=== PATIENT | male | born 1990 | race Hispanic/Latino ===

== ENCOUNTER 2018-05-17 22:34 | Emergency (ER) | payer SELFPAY ==
[2018-05-17] MEDS ORDERED: TETANUS & DIPHTHERIA TOX,ADULT 0.5 ML VIAL ONE (23:07)
[2018-05-17] MEDS ORDERED: LIDOCAINE 1% MPF 5 ML VIAL ONE (23:07)
--- NOTE | 2018-05-18 00:08 | ER ---
Nurse's Notes [facility] Name: Carlos Cordova Age: 27 yrs Sex: Male : 1990 Arrival Date: 05/17/2018 Time: 22:36 Bed 6 Private MD: Alessandro Dillard H Diagnosis: Laceration without foreign body, left foot Presentation: 05/17 22:52 Presenting complaint: Patient states: STEPPED ON A WINE BOTTLE. Transition of care: bp patient was not received from another setting of care. Complicating Factors: Glass or an other foreign body is present in the wound. Onset of symptoms was May 17, 2018 at 22:30. Risk Assessment: Do you want to hurt yourself or someone else? Patient reports no desire to harm self or others. Initial Sepsis Screen: Does the patient meet any 2 criteria? No. Patient's initial sepsis screen is negative. Does the patient have a suspected source of infection? No. Patient's initial sepsis screen is negative. Care prior to arrival: None. 22:52 Method Of Arrival: Ambulatory bp 22:52 Acuity: SONAL 3 bp Triage Assessment: 22:54 General: Appears in no apparent distress. comfortable, Behavior is calm, cooperative, bp appropriate for age. Pain: Complains of pain in arch of left foot. EENT: No signs and/or symptoms were reported regarding the EENT system. Neuro: Level of Consciousness is awake, alert, obeys commands, Oriented to person, place, time, situation, Appropriate for age. Cardiovascular: No deficits noted. Respiratory: Airway is patent Respiratory effort is even, unlabored, Respiratory pattern is regular, symmetrical. GI: No signs and/or symptoms were reported involving the gastrointestinal system. : No signs and/or symptoms were reported regarding the genitourinary system. Derm: No deficits noted. Musculoskeletal: No signs and/or symptoms reported regarding the musculoskeletal system. Circulation, motion, and sensation intact. Range of motion: intact in all extremities. Injury Description: Laceration sustained to arch of left foot. Historical: - Allergies: 22:54 No Known Allergies; bp - Home Meds: 22:54 Nexium Oral [Active]; bp - PMHx: 22:54 reflux; bp - Immunization history:: Adult Immunizations up to date, Last tetanus immunization: unknown. - Social history:: Smoking status: Patient uses tobacco products, denies chronic smoking, but will smoke occasionally, Patient uses alcohol, occasionally. - Ebola Screening: : Patient negative for fever greater than or equal to 101.5 degrees Fahrenheit, and additional compatible Ebola Virus Disease symptoms Patient denies exposure to infectious person Patient denies travel to an Ebola-affected area in the 21 days before illness onset No symptoms or risks identified at this time. Screenin:57 Abuse screen: Denies threats or abuse. Denies injuries from another. Nutritional bp screening: No deficits noted. Tuberculosis screening: No symptoms or risk factors identified. Fall Risk None identified. Assessment: 22:56 General: Appears in no apparent distress. comfortable, Behavior is calm, cooperative, bp appropriate for age, 2CM WELL-APPROXIMATED LAC TO ARCH OF LEFT FOOT. NO ACTIVE BLEEDING AT THIS TIME. 23:00 Injury Description: Laceration is clean, 0.5 to 2.5 cm long, not bleeding. bp 05/18 00:28 Reassessment: PT D/C HOME AMBULATORY, DX WITH FOOT LACERATION. bp Vital Signs: 05/17 22:54 BP 116 / 73; Pulse 92; Resp 14; Temp 98; Pulse Ox 97% on R/A; Weight 108.86 kg; Height bp 5 ft. 10 in. (177.80 cm); 05/18 00:03 BP 115 / 72; Pulse 79; Resp 14; Pulse Ox 99% on R/A; mt 08 22:54 Body Mass Index 34.44 (108.86 kg, 177.80 cm) bp ED Course: 05/17 22:36 Patient arrived in ED. al2 22:36 Alessandro Dillard DO is Private Physician. al2 22:52 Walter Lanza, CORY is Primary Nurse. bp 22:53 Triage completed. bp 22:54 Oz Rodriguez MD is Attending Physician. tw4 22:54 Arm band placed on. bp 22:57 Patient has correct armband on for positive identification. Bed in low position. Call bp light in reach. Side rails up X2. 22:58 Chris Jansen NP is PHCP. pm1 22:59 Oz Rodriguez MD is Attending Physician. pm1 23:33 XRAY Foot LEFT 3 View In Process Unspecified. EDMS 05/18 00:00 Assist provider with laceration repair on left foot that was 2.5 cm. or less using bp sutures. Set up tray. Performed by Chris Jansen COAL CRUSHER OPERATOR Dressed with Neosporin, Patient tolerated well. 00:28 Patient did not have IV access during this emergency room visit. bp Administered Medications: 05/17 23:05 Drug: Tetanus-Diphtheria Toxoid Adult 0.5 ml {Security Sales Consultant: [employer]. Exp: bp 06/15/2020. Lot #: [id number]. } Route: IM; Site: right deltoid; 23:06 Follow up: Response: No adverse reaction bp 23:56 Drug: Lidocaine (1 %) 5 ml {Note: AT B/S FOR PROVIDER.} Volume: 5 ml; Route: bp Infiltration; Outcome: 05/18 00:07 Discharge ordered by . pm1 00:29 Discharged to home ambulatory. bp 00:29 Condition: stable 00:29 Discharge instructions given to patient, Instructed on discharge instructions, follow up and referral plans. wound care, Demonstrated understanding of instructions, follow-up care, wound care, Prescriptions given X 1. 00:30 Patient left the ED. bp Signatures: Dispatcher [employer] EDMS Chris Jansen, AZAEL COAL CRUSHER OPERATOR pm1 Queta Acosta mt, Brian, CORY RN Stacie Kenyon Terrence, MD MD tw4
--- NOTE | 2018-05-18 00:08 | EDPHYS ---
Physician Documentation [facility] Name: Carlos Cordova Age: 27 yrs Sex: Male : 1990 Arrival Date: 05/17/2018 Time: 22:36 Bed 6 Private MD: Alessandro Dillard H ED Physician Oz Rodriguez HPI: 05/17 23:50 This 27 yrs old Male presents to ER via Ambulatory with complaints of pm1 Laceration To Foot. 23:50 The patient has a laceration occurred at home. The laceration(s) is(are) located on the pm1 arch of left foot. Onset: The symptoms/episode began/occurred just prior to arrival. Associated signs and symptoms: Pertinent negatives: deformity, heavy bleeding, numbness distal to injury, suspected foreign body. The patient has not experienced similar symptoms in the past. The patient has not recently seen a physician. Historical: - Allergies: 22:54 No Known Allergies; bp - Home Meds: 22:54 Nexium Oral [Active]; bp - PMHx: 22:54 reflux; bp - Immunization history:: Adult Immunizations up to date, Last tetanus immunization: unknown. - Social history:: Smoking status: Patient uses tobacco products, denies chronic smoking, but will smoke occasionally, Patient uses alcohol, occasionally. - Ebola Screening: : Patient negative for fever greater than or equal to 101.5 degrees Fahrenheit, and additional compatible Ebola Virus Disease symptoms Patient denies exposure to infectious person Patient denies travel to an Ebola-affected area in the 21 days before illness onset No symptoms or risks identified at this time. ROS: 23:50 Constitutional: Negative for fever, chills, and weight loss, Eyes: Negative for injury, pm1 pain, redness, and discharge, ENT: Negative for injury, pain, and discharge, Neck: Negative for injury, pain, and swelling, Cardiovascular: Negative for chest pain, palpitations, and edema, Respiratory: Negative for shortness of breath, cough, wheezing, and pleuritic chest pain, Abdomen/GI: Negative for abdominal pain, nausea, vomiting, diarrhea, and constipation, Back: Negative for injury and pain, MS/Extremity: Negative for injury and deformity. 23:50 Skin: Positive for laceration(s), of the arch of left foot. Exam: 23:50 Constitutional: This is a well developed, well nourished patient who is awake, alert, pm1 and in no acute distress. Head/Face: Normocephalic, atraumatic. Chest/axilla: Normal chest wall appearance and motion. Nontender with no deformity. No lesions are appreciated. Cardiovascular: Regular rate and rhythm with a normal S1 and S2. No gallops, murmurs, or rubs. Normal PMI, no JVD. No pulse deficits. Respiratory: Lungs have equal breath sounds bilaterally, clear to auscultation and percussion. No rales, rhonchi or wheezes noted. No increased work of breathing, no retractions or nasal flaring. Back: No spinal tenderness. No costovertebral tenderness. Full range of motion. 23:50 Skin: Appearance: normal except for affected area, injury, laceration(s), the wound is approximately 2 cm(s), with a depth of 1 cm(s), of the arch of left foot. Vital Signs: 22:54 BP 116 / 73; Pulse 92; Resp 14; Temp 98; Pulse Ox 97% on R/A; Weight 108.86 kg; Height bp 5 ft. 10 in. (177.80 cm); 05/18 00:03 BP 115 / 72; Pulse 79; Resp 14; Pulse Ox 99% on R/A; mt 05/17 22:54 Body Mass Index 34.44 (108.86 kg, 177.80 cm) bp Laceration: 05/17 23:50 Wound Repair of 2cm ( 0.8in ) subcutaneous laceration to arch of left foot. Linear pm1 shaped.. Distal neuro/vascular/tendon intact. Anesthesia: Local anesthetic administered with 2 mls of 1% lidocaine. Wound prep: Extensive cleansing with hibiclenz by financial services technician, Wound irrigation with saline by financial services technician, Wound explored extensively, Copious irrigation. Skin closed with 3 3-0 Prolene using simple sutures and sterile technique. Dressed with Neosporin, 4x4's. Patient tolerated well. MDM: 23:00 Patient medically screened. pm1 23:50 Data reviewed: vital signs. Data interpreted: Pulse oximetry: on room air is 99 %. pm1 Interpretation: normal. Counseling: I had a detailed discussion with the patient and/or guardian regarding: the historical points, exam findings, and any diagnostic results supporting the discharge/admit diagnosis, radiology results, the need for outpatient follow up, to return to the emergency department if symptoms worsen or persist or if there are any questions or concerns that arise at home. 05/17 22:58 Order name: XRAY Foot LEFT 3 View 05/17 23:50 Order name: Prolene, Sutures; Complete Time: 23:56 pm1 05/17 23:50 Order name: Dressing - Wound; Complete Time: 23:56 pm1 05/17 23:50 Order name: Gloves, Sterile; Complete Time: 23:56 pm1 05/17 23:50 Order name: Setup Suture Tray; Complete Time: 23:56 pm1 Administered Medications: 23:05 Drug: Tetanus-Diphtheria Toxoid Adult 0.5 ml {Almond Blancher Hand: [employer]. Exp: 06/15/2020. Lot #: [id number]. } Route: IM; Site: right deltoid; 23:06 Follow up: Response: No adverse reaction bp 23:56 Drug: Lidocaine (1 %) 5 ml {Note: AT B/S FOR PROVIDER.} Volume: 5 ml; Route: bp Infiltration; Disposition: 05/18 03:25 Co-signature as Attending Physician, Oz Rodriguez MD I agree with the assessment and tw4 plan of care. Attestation: The patient's history, exam findings, diagnostics, and a summary of any interventions or procedures was reviewed in detail with Chris Jansen NP. Disposition: 05/18/18 00:07 Discharged to Home. Impression: Laceration without foreign body, left foot. - Condition is Stable. - Discharge Instructions: Laceration Care, Adult. - Prescriptions for Bactrim DS 800- 160 mg Oral Tablet - take 1 tablet by ORAL route every 12 hours for 10 days; 20 tablet. - Work release form, Medication Reconciliation Form, Thank You Letter, Antibiotic Education form. - Follow up: Emergency Department; When: As needed; Reason: Worsening of condition. Follow up: Private Physician; When: 10 - 14 days; Reason: Recheck today's complaints, Continuance of care, Staple/Suture removal, Re-evaluation by your physician. - Problem is new. - Symptoms have improved. Signatures: Dispatcher [employer] EDChris Morales, AZAEL SPOOL SORTER pm1 Walter Lanza RN RN Oz Devries MD MD tw4 Corrections: (The following items were deleted from the chart) 00:30 00:07 05/18/2018 00:07 Discharged to Home. Impression: Laceration without foreign body, bp left foot. Condition is Stable. Forms are Medication Reconciliation Form, Thank You Letter, Antibiotic Education, Prescription Opioid Use. Follow up: Emergency Department; When: As needed; Reason: Worsening of condition. Follow up: Private Physician; When: 10 - 14 days; Reason: Recheck today's complaints, Continuance of care, Staple/Suture removal, Re-evaluation by your physician. Problem is new. Symptoms have improved. pm1
--- NOTE | 2018-05-18 07:06 | RAD REPORT ---
EXAM DESCRIPTION: RAD - Foot Left 3 View - 05/17/2018 11:33 pm CLINICAL HISTORY: Foot trauma, laceration medial plantar surface of the midfoot COMPARISON: None. FINDINGS: No fracture, dislocation or periosteal reaction. No acute or destructive bony process. No air or foreign body in the soft tissues. IMPRESSION: No foreign body, no bony injury.
== END 2018-05-18 00:30 | disposition home or self-care (01) ==
LOC: ER 22:34
PROC: 0JQR0ZZ Repair Left Foot Subcutaneous Tissue and Fascia, Open Approach (ICD-10-PCS; principal; 2018-05-18)
DX: S91.312A Laceration without foreign body, left foot, initial encounter (principal); F17.210 Nicotine dependence, cigarettes, uncomplicated; Z23 Encounter for immunization
CPT/HCPCS: 90714; 99284

== ENCOUNTER 2019-11-20 19:46 | Emergency (ER) | payer BC ==
[2019-11-20] MEDS ORDERED: HYDROCODONE/CHLORPHEN 5 ML/OSYR ONE (22:15)
--- NOTE | 2019-11-20 22:44 | ER ---
Nurse's Notes [facility] Name: Carlos Cordova Age: 29 yrs Sex: Male : 1990 Arrival Date: 11/20/2019 Time: 19:49 Bed 10 Private MD: Diagnosis: Acute upper respiratory infection, unspecified Presentation: 11/20 20:09 Presenting complaint: Patient states: Chest congestion with bodyaches unsure if any sg fever, reports having these symtpoms for three days now. Transition of care: patient was not received from another setting of care. Onset of symptoms was November 20, 2019. Risk Assessment: Do you want to hurt yourself or someone else? Patient reports no desire to harm self or others. Initial Sepsis Screen: Does the patient meet any 2 criteria? No. Patient's initial sepsis screen is negative. Does the patient have a suspected source of infection? No. Patient's initial sepsis screen is negative. Care prior to arrival: None. 20:09 Method Of Arrival: Ambulatory sg 20:09 Acuity: SONAL 4 sg Historical: - Allergies: 20:08 No Known Allergies; sg - PMHx: 20:08 reflux; sg - Immunization history:: Adult Immunizations unknown. - Coronavirus screen:: The patient has NOT traveled to [place] in the past 14 days. The patient has NOT had contact with known/suspected case of Coronavirus?. - Social history:: Smoking status: unknown. - Ebola Screening: : Patient negative for fever greater than or equal to 101.5 degrees Fahrenheit, and additional compatible Ebola Virus Disease symptoms Patient denies exposure to infectious person Patient denies travel to an Ebola-affected area in the 21 days before illness onset No symptoms or risks identified at this time. Screenin:33 Abuse screen: Denies threats or abuse. Nutritional screening: No deficits noted. bb Tuberculosis screening: No symptoms or risk factors identified. Fall Risk None identified. Assessment: 20:33 General: Appears in no apparent distress. Behavior is calm, cooperative. Pain: bb Complains of pain in body aches. Neuro: Level of Consciousness is awake, alert, obeys commands, Oriented to person, place, time, situation. Cardiovascular: No deficits noted. Respiratory: Respiratory effort is even, unlabored, Respiratory pattern is regular, Breath sounds are clear bilaterally. GI: No deficits noted. No signs and/or symptoms were reported involving the gastrointestinal system. EENT: Throat is reddened has enlarged tonsils. Derm: Skin is pink, warm \T\ dry. Musculoskeletal: Circulation, motion, and sensation intact. 22:18 Reassessment: No changes from previously documented assessment. sr3 Vital Signs: 20:10 Temp 98.1; sg 20:10 BP 133 / 88; Pulse 78; Resp 18; Temp 98.2; Pulse Ox 98% on R/A; Weight 99.79 kg; Height sg 5 ft. 10 in. (177.80 cm); 22:22 BP 168 / 83; Pulse 69; Resp 18; Temp 98.3; Pulse Ox 98% ; sr3 20:10 Body Mass Index 31.57 (99.79 kg, 177.80 cm) ED Course: 19:49 Patient arrived in ED. jg7 20:08 Arm band placed on. sg 20:10 Triage completed. sg 20:32 Chris Jansen NP is PHCP. pm1 20:32 Syd Treadwell MD is Attending Physician. pm1 20:32 Roxi Ott, RN is Primary Nurse. bb 20:33 Patient has correct armband on for positive identification. Call light in reach. Adult bb w/ patient. 20:34 Flu Sent. bb 22:23 No provider procedures requiring assistance completed. Patient did not have IV access sr3 during this emergency room visit. Administered Medications: 22:18 Drug: Tussionex Pennkinetic ER 5 ml Route: PO; sr3 Outcome: 22:08 Discharge ordered by . pm1 22:23 Discharged to home with significant other. sr3 22:23 Condition: stable 22:23 Discharge instructions given to patient. 22:28 Patient left the ED. sr3 Signatures: Cali Ledesma RN RN Roxi Ott RN RN bb Jacqueline Henderson RN RN sr3 Chris Jansen NP AUTOMOBILE MECHANIC ASSISTANT pm1 Debbie Johnson jg7
--- NOTE | 2019-11-20 22:44 | EDPHYS ---
Physician Documentation [facility] Name: Carlos Cordova Age: 29 yrs Sex: Male : 1990 Arrival Date: 11/20/2019 Time: 19:49 Bed 10 Private MD: ED Physician Syd Treadwell HPI: 11/20 22:07 This 29 yrs old Male presents to ER via Ambulatory with complaints of Flu pm1 Symptoms. 22:07 The patient or guardian reports cough, flu symptoms. Onset: The symptoms/episode pm1 began/occurred 3 day(s) ago. Severity of symptoms: in the emergency department the symptoms are unchanged. Modifying factors: The symptoms are alleviated by nothing, the symptoms are aggravated by nothing. Associated signs and symptoms: Pertinent negatives: chest pain, fever, sore throat, shortness of breath. It is unknown whether or not the patient has recently seen a physician. Sick contacts at work with the same symptoms. Historical: - Allergies: 20:08 No Known Allergies; sg - PMHx: 20:08 reflux; sg - Immunization history:: Adult Immunizations unknown. - Coronavirus screen:: The patient has NOT traveled to [place] in the past 14 days. The patient has NOT had contact with known/suspected case of Coronavirus?. - Social history:: Smoking status: unknown. - Ebola Screening: : Patient negative for fever greater than or equal to 101.5 degrees Fahrenheit, and additional compatible Ebola Virus Disease symptoms Patient denies exposure to infectious person Patient denies travel to an Ebola-affected area in the 21 days before illness onset No symptoms or risks identified at this time. ROS: 22:07 Eyes: Negative for injury, pain, redness, and discharge, ENT: Negative for injury, pm1 pain, and discharge, Neck: Negative for injury, pain, and swelling, Cardiovascular: Negative for chest pain, palpitations, and edema. 22:07 Abdomen/GI: Negative for abdominal pain, nausea, vomiting, diarrhea, and constipation, Back: Negative for injury and pain, MS/Extremity: Negative for injury and deformity, Skin: Negative for injury, rash, and discoloration, Neuro: Negative for headache, weakness, numbness, tingling, and seizure. 22:07 Constitutional: Positive for body aches, Negative for fever, poor PO intake. 22:07 Respiratory: Positive for cough, Negative for shortness of breath, wheezing. Exam: 22:07 Constitutional: This is a well developed, well nourished patient who is awake, alert, pm1 and in no acute distress. Head/Face: Normocephalic, atraumatic. ENT: Nares patent. No nasal discharge, no septal abnormalities noted. Tympanic membranes are normal and external auditory canals are clear. Oropharynx with no redness, swelling, or masses, exudates, or evidence of obstruction, uvula midline. Mucous membranes moist. Neck: Trachea midline, no thyromegaly or masses palpated, and no cervical lymphadenopathy. Supple, full range of motion without nuchal rigidity, or vertebral point tenderness. No Meningismus. Chest/axilla: Normal chest wall appearance and motion. Nontender with no deformity. No lesions are appreciated. Cardiovascular: Regular rate and rhythm with a normal S1 and S2. No gallops, murmurs, or rubs. Normal PMI, no JVD. No pulse deficits. Respiratory: Lungs have equal breath sounds bilaterally, clear to auscultation and percussion. No rales, rhonchi or wheezes noted. No increased work of breathing, no retractions or nasal flaring. Abdomen/GI: Soft, non-tender, with normal bowel sounds. No distension or tympany. No guarding or rebound. No evidence of tenderness throughout. Back: No spinal tenderness. No costovertebral tenderness. Full range of motion. Skin: Warm, dry with normal turgor. Normal color with no rashes, no lesions, and no evidence of cellulitis. MS/ Extremity: Pulses equal, no cyanosis. Neurovascular intact. Full, normal range of motion. 22:07 Neuro: Exam negative for acute changes, Orientation: is normal, Motor: is normal. Vital Signs: 20:10 Temp 98.1; sg 20:10 BP 133 / 88; Pulse 78; Resp 18; Temp 98.2; Pulse Ox 98% on R/A; Weight 99.79 kg; Height sg 5 ft. 10 in. (177.80 cm); 22:22 BP 168 / 83; Pulse 69; Resp 18; Temp 98.3; Pulse Ox 98% ; sr3 20:10 Body Mass Index 31.57 (99.79 kg, 177.80 cm) MDM: 20:33 Patient medically screened. [facility] 22:07 Data reviewed: vital signs. Data interpreted: Pulse oximetry: on room air is 98 %. pm1 Interpretation: normal. Counseling: I had a detailed discussion with the patient and/or guardian regarding: the historical points, exam findings, and any diagnostic results supporting the discharge/admit diagnosis, lab results, the need for outpatient follow up, to return to the emergency department if symptoms worsen or persist or if there are any questions or concerns that arise at home. 11/20 20:13 Order name: Flu sg 11/20 22:28 Order name: Influenza Screen (A EDMS Administered Medications: 22:18 Drug: Tussionex Pennkinetic ER 5 ml Route: PO; sr3 Disposition: 11/21 07:07 Co-signature as Attending Physician, Syd Treadwell MD I agree with the assessment and [facility] plan of care. Disposition: 11/20/19 22:08 Discharged to Home. Impression: Acute upper respiratory infection, unspecified. - Condition is Stable. - Discharge Instructions: Antibiotic Resistance, Upper Respiratory Infection, Adult, Viral Respiratory Infection. - Prescriptions for Guaifenesin AC 10- 100 mg/5 mL Oral Liquid - take 10 milliliter by ORAL route every 4 hours As needed; 240 milliliter. - Work release form, Medication Reconciliation Form, Thank You Letter, Antibiotic Education, Prescription Opioid Use form. - Follow up: Emergency Department; When: As needed; Reason: Worsening of condition. Follow up: Private Physician; When: 2 - 3 days; Reason: Recheck today's complaints, Continuance of care, Re-evaluation by your physician. - Problem is new. - Symptoms have improved. Signatures: Dispatcher [employer] EDMT Cali Ledesma RN RN sg Anderson, Corey, MD MD cha Ballard, Brenda, RN RN Jacqueline Juan RN RN sr3 Chris Jansen, AZAEL SLIDE FASTENER CHAIN ASSEMBLER pm1 Corrections: (The following items were deleted from the chart) 11/20 22: 22:08 11/20/2019 22:08 Discharged to Home. Impression: Acute upper respiratory sr3 infection, unspecified. Condition is Stable. Forms are Medication Reconciliation Form, Thank You Letter, Antibiotic Education, Prescription Opioid Use. Follow up: Emergency Department; When: As needed; Reason: Worsening of condition. Follow up: Private Physician; When: 2 - 3 days; Reason: Recheck today's complaints, Continuance of care, Re-evaluation by your physician. Problem is new. Symptoms have improved. pm1
[2019-11-20 23:42] VITALS: O2SAT 98
[2019-11-20 23:44] VITALS: BP 168/83; TEMP 98.3
== END 2019-11-20 22:28 | disposition home or self-care (01) ==
LOC: ER 19:46
DX: J06.9 Acute upper respiratory infection, unspecified (principal)
CPT/HCPCS: 87804; 99283

== ENCOUNTER 2024-05-08 20:14 | Emergency (ER) | payer SELFPAY ==
--- OUTSIDE RECORDS SUMMARY | 2024-05-08 20:17 | XMS REPORT | Continuity of Care Document ---
Author Name Unknown Address [address] [place] [address] [address] [facility] Address [address] [facility] [address] [place] [address] Care Team Providers Care Dry Clipper Tender Name Role Phone Unavailable Unavailable Unavailable Encounters Start Date/Time End Date/Time Encounter Type Admission Type Attending Clinicians [facility] Facility Care Department Encounter ID Source 2023-09-08 09:56:59 2023-09-08 09:56:59 Outpatient [facility] [id number] Kevin Rhodes 2023-08-27 09:17:46 2023-08-27 09:17:46 Outpatient [facility] [id number] Kevin Rhodes
--- NOTE | 2024-05-08 22:28 | RAD REPORT ---
EXAM DESCRIPTION: Jamey Torres (2 Views)05/08/2024 10:14 pm CLINICAL HISTORY: Cough COMPARISON: None FINDINGS: The lungs appear clear of acute infiltrate. The heart is normal size IMPRESSION: No acute abnormalities displayed
[2024-05-09] MEDS ORDERED: HYDROCODONE/CHLORPHEN 5 ML/OSYR ONE (01:00)
[2024-05-09 01:23] LABS: SARS-CoV-2 Antigen CONTROL BLUE LINE VIS/BG OK; SARS-CoV-2 Antigen Rapid Res Negative (Negative)
--- NOTE | 2024-05-09 01:23 | EDPHYS ---
Physician Documentation [facility] Name: Carlos Cordova Age: 33 yrs Sex: Male : 1990 Arrival Date: 05/08/2024 Time: 20:14 Bed DX4 Private MD: ED Physician David Marroquin HPI: 05/08 22:05 This 33 yrs old Male presents to ER via Ambulatory with complaints of Flu sb4 Symptoms. 22:05 productive cough x 4 days, body aches, malaise. taking dayquil without significant sb4 relief. no known sick contacts. denies chest pain, nausea, vomiting, shortness of breath. Historical: - Allergies: 21:45 No Known Allergies; cm10 - PMHx: 21:45 reflux; cm10 - PSHx: 21:45 None; cm10 - Immunization history:: Adult Immunizations up to date. - Infectious Disease History:: Denies. - Social history:: Smoking status: Patient denies any tobacco usage or history of. ROS: 22:05 Cardiovascular: Negative for chest pain, palpitations, and edema, sb4 22:05 Constitutional: Positive for body aches, chills, fatigue, malaise, 22:05 Respiratory: Positive for cough, 22:05 All other systems are negative, Exam: 22:05 Constitutional: This is a well developed, well nourished patient who is awake, alert, sb4 and in no acute distress. Head/Face: Normocephalic, atraumatic. Eyes: Extra-ocular motions intact. Periorbital areas with no swelling, redness, or edema. ENT: Mucous membranes moist. Cardiovascular: Regular rate and rhythm with a normal S1 and S2. Respiratory: Lungs have equal breath sounds bilaterally, clear to auscultation and percussion. No rales, rhonchi or wheezes noted. No increased work of breathing, no retractions or nasal flaring. Abdomen/GI: Soft, non-tender, no distension. Skin: Warm, dry with normal turgor. Normal color with no rashes, no lesions, and no evidence of cellulitis. MS/ Extremity: Pulses equal, no cyanosis. Neurovascular intact. Full, normal range of motion. Neuro: Awake and alert, GCS 15, oriented to person, place, time, and situation. Motor strength 5/5 in all extremities. Sensory grossly intact. Vital Signs: 21:44 BP 177 / 104; Pulse 70; Resp 16; Temp 98.5(O); Pulse Ox 100% on R/A; Weight 111.13 kg; cm10 Height 5 ft. 10 in. ; Pain 7/10; 21:44 Body Mass Index 35.15 (111.13 kg, 177.8 cm) cm10 21:44 Pain Scale: Adult cm10 MDM: 20:58 Patient medically screened. sb4 05/09 01:23 Data reviewed: vital signs, nurses notes, lab test result(s), radiologic studies, and sb4 as a result, I will discharge patient. Counseling: I had a detailed discussion with the patient and/or guardian regarding the historical points, exam findings, and any diagnostic results supporting the discharge/admit diagnosis, lab results, radiology results, to return to the emergency department if symptoms worsen or persist or if there are any questions or concerns that arise at home. 05/08 21:44 Order name: Strep; Complete Time: 01:24 cm10 05/08 21:44 Order name: Flu; Complete Time: :24 cm10 05/08 21:44 Order name: SARS RAPID; Complete Time: :24 cm10 05/09 01:26 Order name: Throat Culture EDMS 05/08 21:48 Order name: Chest Pa And Lat (2 Views) XRAY; Complete Time: 22:28 sb4 Administered Medications: 01:07 Drug: Tussionex Pennkinetic ER PO Suspension 5 ml PO once Route: PO; jb4 01:58 Follow up: Response: No adverse reaction; Marked relief of symptoms jb4 01:57 Drug: predniSONE PO 40 mg PO once Route: PO; jb4 01:58 Follow up: Response: Medication administered at discharge. jb4 Disposition: 20:51 Co-signature as Attending Physician, David Marroquin MD I agree with the assessment sp4 and plan of care. I reviewed the patient's care provided by Advanced Practice Provider \T\ agree w/ the diagnosis \T\ care plan. I personally saw the pt \T\ performed a substantive portion of the visit, incldng all aspects of the (History/Exam/Medical Decision Making). Disposition Summary: 05/09/24 01:23 Discharge Ordered Notes: Location: Home sb4 Problem: new sb4 Symptoms: have improved sb4 Condition: Stable sb4 Diagnosis - Acute bronchitis, unspecified sb4 Followup: sb4 - With: Emergency Department - When: As needed - Reason: Trouble breathing, Worsening of condition Discharge Instructions: - Discharge Summary Sheet sb4 - Acute Bronchitis, Adult sb4 Forms: - Work release form jb4 - Patient Portal Instructions sb4 - Leadership Thank You Letter sb4 Prescriptions: - Tessalon Perles 100 mg Oral Capsule - take 1 capsule ORAL route every 8 hours As needed; 15 capsule; Refills: 0, sb4 Product Selection Permitted - Prednisone 20 mg Oral Tablet - take 1 tablet ORAL route every 12 hours for 5 days; 10 tablet; Refills: 0, sb4 Product Selection Permitted Signatures: Dispatcher [employer] EDDarrell Dean, RN RN jb4 Anny Jimenez PACarmen PACarmen sb4 David Marroquin MD MD sp4 Lily Foreman RN RN cm10
--- NOTE | 2024-05-09 01:23 | ER ---
Nurse's Notes [facility] Name: Carlos Cordova Age: 33 yrs Sex: Male : 1990 Arrival Date: 05/08/2024 Time: 20:14 Bed DX4 Private MD: Diagnosis: Acute bronchitis, unspecified Presentation: 05/08 21:44 Chief complaint: Patient states: Cough, sore throat, subjective fever, and chest pain cm10 that is worse with inspiration onset 4 days ago. Coronavirus screen: Client denies travel out of the [place] in the last 14 days. At this time, the client does not indicate any symptoms associated with coronavirus-19. Ebola Screen: Patient denies travel to an Ebola-affected area in the 21 days before illness onset. No symptoms or risks identified at this time. Initial Sepsis Screen: Does the patient meet any 2 criteria? No. Patient's initial sepsis screen is negative. Does the patient have a suspected source of infection? No. Patient's initial sepsis screen is negative. Risk Assessment: Do you want to hurt yourself or someone else? Patient reports no desire to harm self or others. Onset of symptoms was May 08, 2024. 21:44 Method Of Arrival: Ambulatory cm10 21:44 Acuity: SONAL 4 cm10 Triage Assessment: 21:45 General: Appears in no apparent distress. comfortable, Behavior is calm, cooperative. cm10 Neuro: No deficits noted. Level of Consciousness is awake, alert, obeys commands, Oriented to person, place, time, situation, Appropriate for age. Respiratory: No deficits noted. Airway is patent Respiratory effort is even, unlabored, Respiratory pattern is regular, symmetrical. Historical: - Allergies: 21:45 No Known Allergies; cm10 - PMHx: 21:45 reflux; cm10 - PSHx: 21:45 None; cm10 - Immunization history:: Adult Immunizations up to date. - Infectious Disease History:: Denies. - Social history:: Smoking status: Patient denies any tobacco usage or history of. Screenin/13 01:58 [facility] ED Fall Risk Assessment (Adult) History of falling in the last 3 months, jb4 including since admission No falls in past 3 months (0 pts) Confusion or Disorientation No (0 pts) Intoxicated or Sedated No (0 pts) Impaired Gait No (0 pts) Mobility Assist Device Used No (0 pt) Altered Elimination No (0 pt) Score/Fall Risk Level 0 - 2 = Low Risk Oriented to surroundings, Maintained a safe environment. Abuse screen: Denies threats or abuse. Nutritional screening: No deficits noted. Tuberculosis screening: No symptoms or risk factors identified. Assessment: :58 Reassessment: Patient appears in no apparent distress at this time. Patient and/or jb4 family updated on plan of care and expected duration. Pain level reassessed. Patient is alert, oriented x 3, equal unlabored respirations, skin warm/dry/pink. Vital Signs: 05/08 21:44 BP 177 / 104; Pulse 70; Resp 16; Temp 98.5(O); Pulse Ox 100% on R/A; Weight 111.13 kg; cm10 Height 5 ft. 10 in. ; Pain 7/10; 21:44 Body Mass Index 35.15 (111.13 kg, 177.8 cm) cm10 21:44 Pain Scale: Adult cm10 ED Course: 20:18 Patient arrived in ED. im 20:44 Anny Jimenez PA-C is PHCP. sb4 20:44 David Marroquin MD is Attending Physician. sb4 21:45 Triage completed. cm10 21:46 Arm band placed on Patient placed in waiting room. cm10 22:16 Chest Pa And Lat (2 Views) XRAY In Process Unspecified. EDMS 05/09 00:48 Ayad Moore, RN is Primary Nurse. tl4 01:23 David Marroquin MD is Referral Physician. sb4 01:58 Patient has correct armband on for positive identification. Bed in low position. Call jb4 light in reach. Side rails up X 1. Provided Education on: discharge instructions.. 01:58 No provider procedures requiring assistance completed. Patient did not have IV access jb4 during this emergency room visit. Administered Medications: 01:07 Drug: Tussionex Pennkinetic ER PO Suspension 5 ml PO once Route: PO; jb4 01:58 Follow up: Response: No adverse reaction; Marked relief of symptoms jb4 01:57 Drug: predniSONE PO 40 mg PO once Route: PO; jb4 :58 Follow up: Response: Medication administered at discharge. jb4 Medication: :58 VIS not applicable for this client. jb4 Outcome: 01:23 Discharge ordered by . sbKalli 01:58 Discharged to home ambulatory, jb4 01:58 Condition: stable 01:58 Discharge instructions given to patient, Instructed on discharge instructions, follow up and referral plans. medication usage, Demonstrated understanding of instructions, follow-up care, medications, Prescriptions given X 2, 02:00 Patient left the ED. jb4 Signatures: Dispatcher [employer] EDMS Darrell Escobedo RN RN jb4 Anny Jimenez PA-C PA-C [email or web address] Charmaine Rueda Clarissa, RN RN cm10 Ayad Moore RN RN tl4
[2024-05-09] MEDS ORDERED: predniSONE 20 MG TAB ONE (01:50)
[2024-05-09 02:12] VITALS: BP 177/104; TEMP 98.5; O2SAT 100
== END 2024-05-09 02:00 | disposition home or self-care (01) ==
LOC: ER 20:14
DX: J20.9 Acute bronchitis, unspecified (principal); Z11.52 Encounter for screening for COVID-19
CPT/HCPCS: 36415; 71046; 87070; 87081; 87804; 87811; J7512